=== PATIENT | female | born 1985 | race Caucasian/White ===

== ENCOUNTER 2018-07-25 06:28 | Emergency (ER) | payer BC ==
[2018-07-25 06:53] LABS: APPEARANCE,URINE Clear (CLEAR); BILIRUBIN,URINE Negative (NEGATIVE); COLOR,URINE Yellow (YELLOW); GLUCOSE, URINE (UA) Negative (NEGATIVE); KETONES,URINE Negative (NEGATIVE); LEUKOCYTE ESTERASE ,URINE Negative (NEGATIVE); NITRATE,URINE Negative (NEGATIVE); OCCULT BLOOD,URINE Negative (NEGATIVE); PH,URINE 6.5 (5.0-8.0); PROTEIN,URINE Negative (NEGATIVE)
[2018-07-25 07:17] LABS: EOSINOPHILS % (AUTO) 1.3 % (0.0-8.0); HEMATOCRIT 40.4 % (36-48); MEAN CORPUSCULAR HEMOGLOBIN 27.2 pg (27.0-33.0); MEAN CORPUSCULAR HGB CONC 33.1 g/dL (32.0-36.0); MONOCYTES % (AUTO) 5.1 % (3.0-13.0); NEUTROPHILS % (AUTO) 73.6 % (40.0-77.0); PLATELET COUNT (AUTO) 323 K/uL (130-400); RED BLOOD CELL COUNT(AUTO) 4.92 MIL/uL (4.00-5.50); RED CELL DISTRIBUTION WIDTH 14.3 % (11.0-15.5); WHITE BLOOD COUNT (AUTO) 11.5 K/uL (4.8-10.8)
[2018-07-25] MEDS ORDERED: DIAZEPAM 5 MG TABLET ONE (07:18)
[2018-07-25] MEDS ORDERED: KETOROLAC TROMETHAMINE 30MG/ML ONE (07:18)
[2018-07-25 07:25] LABS: CREATININE 0.8 mg/dL (0.5-1.5); POTASSIUM 4.8 mmol/L (3.5-5.1)
[2018-07-25 07:31] LABS: ALBUMIN 3.8 g/dL (3.5-5.0); BILIRUBIN,TOTAL 0.4 mg/dL (0.2-1.0); TOTAL PROTEIN, SERUM 8.1 g/dL (6.0-8.3)
[2018-07-25 09:25] LABS: AMPHET/METH SCREEN,URINE NEGATIVE (NEGATIVE); BARBITURATE SCREEN, URINE NEGATIVE (NEGATIVE); BENZODIAZEPINES SCREEN,URINE NEGATIVE (NEGATIVE); CANNABINOID SCREEN,URINE NEGATIVE (NEGATIVE); COCAINE SCREEN,URINE NEGATIVE (NEGATIVE); OPIATE SCREEN,URINE NEGATIVE (NEGATIVE); PHENCYCLIDINE SCREEN,URINE NEGATIVE (NEGATIVE)
== END 2018-07-25 09:15 | disposition home or self-care (01) ==
LOC: EDH 06:28
DX: M54.5 Low back pain (principal); I10 Essential (primary) hypertension; Z98.890 Other specified postprocedural states
CPT/HCPCS: 36415; 80053; 80305; 81003; 81025; 82550; 84484; 85025; 93005; 96374; 99285; J1885

== ENCOUNTER 2021-05-10 00:53 | Emergency (ER) | payer BC ==
[~2021-05-10] VITALS: Ht 177.8 cm; Wt 131.5 kg
[2021-05-10] MEDS ORDERED: ONDANSETRON ODT 4MG TAB SL ONE (03:00)
[2021-05-10] MEDS ORDERED: HYDROCODONE/ACETAMINOPHEN 5/325 MG TAB PO ONE (03:00)
[2021-05-10] MEDS ORDERED: ORPHENADRINE CITRATE 30 MG/ML ML IM ONE (03:00)
[2021-05-10] MEDS ORDERED: KETOROLAC 60 MG VIAL (30MG/ML) IM ONE (03:00)
[2021-05-10] MEDS ORDERED: ORPH-43 PO (03:15)
[2021-05-10] MEDS ORDERED: LIDOP TP (03:15)
[2021-05-10] MEDS ORDERED: MELO7.5T12 PO (03:15)
[2021-05-10 03:35] VITALS: BP 158/82
== END 2021-05-10 03:36 | disposition home or self-care (01) ==
LOC: EDH 00:53
DX: M62.830 Muscle spasm of back (principal); M54.50 Low back pain, unspecified; M25.551 Pain in right hip; I10 Essential (primary) hypertension; Z79.1 Long term (current) use of non-steroidal anti-inflammatories (NSAID)
CPT/HCPCS: 96372 ×2; 99284; J1885; J2360